=== PATIENT | female | born 1990 | race Caucasian/White ===

== ENCOUNTER 2019-05-08 05:49 | Inpatient (IN) | payer BC ==
[2019-05-08] MEDS ORDERED: Nalbuphine 10 MG/1 ML Vial IVPUSH PRN (12:42)
[2019-05-08] MEDS ORDERED: Lidocaine 1% 50 ML MDV INJECT ONE (12:42)
[2019-05-08] MEDS ORDERED: Ondansetron 4 MG/2 ML SDV IVPUSH PRN (12:42)
[2019-05-08] MEDS ORDERED: Oxytocin/Lactated Ringers 10 UNIT/1,000 ML BAG IV SCH ×2 (12:45)
[2019-05-08] MEDS: Lactated Ringers 1,000 ML IV SCH ×3 (14:33→21:29)
--- NOTE | 2019-05-08 14:51 | PCM.LDHP ---
L&D History of Present Illness - General Date of Service: 05/08/19 Admit Problem/Dx: Patient Status Order with Admit Dx/Problem 05/08/19 12:42 Patient Status [ADT] Routine Admission Diagnosis/Problem Admission Diagnosis/Problem Elective induction of labor planned 05/08/19 14:43 Jhonatan is a 28-year-old 1 para 0 white female was admitted on 05/08/2019 at 40-4/7 weeks gestational age with an CHAU of 05/04/2019 for elective induction of labor. Source of Information: Patient History Limitations: Reports: No Limitations - History of Present Illness Introduction:: Jhonatan is a 28-year-old 1 para 0 white female was admitted on 05/08/2019 at 40-4/7 weeks gestational age with an CHAU of 05/04/2019 for elective induction of labor. The patient's CHAU of 05/04/2019 was based upon an early ultrasound and . This was done with her care in [place]. She transferred care to our clinic with that transfer visit being 2018 at 31 weeks and 6 days. Since that time patient has had regular visits. Patient reports that her weight gain has been approximately 30 pounds from 135 up to approximately 164 pounds. Her vital signs have been stable throughout the care. Fundal height growth has been appropriate. She declined genetic testing. She desires to breast-feed. Her group B strep screen is negative. Patient had her T DAP prior to transfer of care. She is desiring a natural labor. Laboratory testing in showed first labs: Blood is O+ with negative and by screen. First hemoglobin was 13.8 g/dL with platelets 346,000. Urine culture was negative. Hepatitis B surface antigen was negative as was HIV. Chlamydia and gonorrhea assays were both negative. Second trimester hemoglobin was 12.1 g/dL. Platelets were 257,000. One-hour GTT was normal at 119. The strep screen was negative. Allergies none Medications: 1. vitamins 1 daily. Past medical history: Unremarkable Past surgical history: 1. Tarsal tunnel surgery 2004 Family history: Father at age 54 with history of diabetes. Maternal Grandfather has a history of breast cancer. Mother negative for BRCA gene mutation the patient has not had testing done. One brother and one sister alive and well. Maternal grandmother healthy. Paternal grandfather with heart attack. Paternal grandmother alive. Patient denies any family history of blood clots, reaction to medications or anesthesia. Twins or other abnormalities. Social history: Patient is area she lives in [place], [place]. 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 She has a postgraduate degree. She does not use any significant most alcohol, drugs or tobacco. Her 's name is Jose Hand. Review of systems: In general patient has no complaints. Baby has been active. Skin: Negative Lungs: No infectious symptoms or shortness of breath Cardiovascular: No chest pain or exercise intolerance Breasts: No lumps, changes in size other than those associated with . No pain, dimpling, discharge or axillary or supraclavicular concerns. GI: Negative : Changes associated Musculoskeletal: Negative Neurological: Negative In general the patient is well-developed, well-nourished, pleasant female of stated age in no acute distress. On last evaluation clinic blood pressure 120/72. Weight was 163.8. Weight at time of transfer care at 31-6/7 weeks was 158 pounds. heart rate is 130. Skin is warm dry without lesions. HEENT, neck and back within normal limits. Lungs are clear with good breath sounds in all lung dougherty. Cardiovascular exam shows regular and rhythm without murmurs. Breast exam is deferredpatient does plan to breast-feed. Abdomen is gravid with fundal height of 38+ centimeters. Baby in vertex presentation Genital exam: Cervix is 2 cm, 80% effaced, -3 station but head well applied to the cervix, mid position, very soft. Extremities and neurological exam are grossly within normal limits. 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: - Past Surgical History HEENT Surgical History: Reports: Other (See Below) Other HEENT Surgeries/Procedures: [place] teeth removal Musculoskeletal Surgical History: Reports: Other (See Below) Other Musculoskeletal Surgeries/Procedures:: Tarsal Tunnel surgery Social & Family History - Family History Family Medical History: Noncontributory - Tobacco Use Smoking Status *Q: Never Smoker - Caffeine Use Caffeine Use: Reports: None - Recreational Drug Use Recreational Drug Use: No H&P Review of Systems - Review of Systems: Review Of Systems: See Below L&D Exam - Exam Exam: See Below - Vital Signs Vital Signs: Last Vital Signs Temp 36.7 C 05/08/19 12:10 Pulse 63 05/08/19 13:00 Resp 13 05/08/19 12:10 BP 111/69 05/08/19 13:00 Pulse Ox 99 05/08/19 12:10 Weight: 75.614 kg - Patient Data Lab Results Last 24 hrs: Laboratory Results - last 24 hr 05/08/19 Range/Units 13:16 WBC 7.99 (3.98-10.04) K/mm3 RBC 3.91 L (3.98-5.22) M/mm3 Hgb 12.8 (11.2-15.7) gm/L Hct 37.1 (34.1-44.9) % MCV 94.9 H (79.4-94.8) fl MCH 32.7 H (25.6-32.2) pg MCHC 34.5 (32.2-35.5) g/dl RDW Std Deviation 40.9 (36.4-46.3) fL Plt Count 234 (182-369) K/mm3 MPV 10.3 (9.4-12.3) fl Neut % (Auto) 72.9 H (34.0-71.1) % Lymph % (Auto) 17.8 L (19.3-51.7) % [place] % (Auto) 7.6 (4.7-12.5) % Eos % (Auto) 1.1 (0.7-5.8) Baso % (Auto) 0.3 (0.1-1.2) % Neut # (Auto) 5.83 (1.56-6.13) K/mm3 Lymph # (Auto) 1.42 (1.18-3.74) K/mm3 [place] # (Auto) 0.61 H (0.24-0.36) K/mm3 Eos # (Auto) 0.09 (0.04-0.36) K/mm3 Baso # (Auto) 0.02 (0.01-0.08) K/mm3 Result Diagrams: 05/08/19 13:16 Problem List Initiated/Reviewed/Updated: Yes Orders Last 24hrs: Active Orders 24 hr Category Date Time Status Patient Status [ADT] Routine ADT 05/08/19 12:42 Active Activity as Tolerated [RC] PFP Care 05/08/19 12:42 Active Communication Order [RC] ASDIRECTED Care 05/08/19 12:42 Active Heart Tones [RC] ASDIRECTED Care 05/08/19 12:43 Active Non Stress Test [RC] PER UNIT ROUTINE Care 05/08/19 12:42 Active Notify Provider [RC] PFP Care 05/08/19 12:42 Active Notify Provider [RC] PRN Care 05/08/19 12:42 Active Peripheral IV Care [RC] . DIRECTED Care 05/08/19 12:43 Active Pump Management, Intrathecal [RC] ASDIRECTED Care 05/08/19 16:00 Active Vital Signs [RC] PER UNIT ROUTINE Care 05/08/19 12:42 Active Regular Diet [DIET] Diet 05/08/19 Lunch Active RAPID PLASMA REAGIN,RPR [CHEM] Routine Lab 05/08/19 13:16 Received RUBELLA ANTIBODY IGG [CHEM] Stat Lab 05/08/19 13:16 Received Lactated Ringers [Ringers, Lactated] 1,000 ml Med 05/08/19 12:45 Active IV ASDIRECTED Nalbuphine [Nubain] Med 05/08/19 12:42 Active 10 mg IVPUSH Q2H PRN Ondansetron [Zofran] Med 05/08/19 12:42 Active 4 mg IVPUSH Q4H PRN Oxytocin/Lactated Ringers [Pitocin in LR 10 Units/1,000 Med 05/08/19 12:45 Active ML] 10 unit in 1,000 ml IV .CONTINUOUS Oxytocin/Lactated Ringers [Pitocin in LR 10 Units/1,000 Med 05/08/19 12:45 Active ML] 10 unit in 1,000 ml IV TITRATE Electronic Heart Tones Ext w TOCO [WOMSER] Oth 05/08/19 12:42 Ordered Routine Electronic Heart Tones Internal [WOMSER] Per Unit Oth 05/08/19 12:42 Ordered Routine Peripheral IV Insertion Adult [OM.PC] Routine Oth 05/08/19 12:42 Ordered Resuscitation Status Routine Resus Stat 05/08/19 12:42 Ordered Medication Orders Lactated Ringer's (Ringers, Lactated) 1,000 mls @ 100 mls/hr IV ASDIRECTED EBONY Last Admin: 05/08/19 14:33 Dose: 100 mls/hr Oxytocin/Lactated Ringer's (Pitocin In Lr 10 Units/1,000 Ml) 10 unit in 1,000 mls @ 12 mls/hr IV TITRATE EBONY; Protocol Last Admin: 05/08/19 14:32 Dose: 2 munits/min, 12 mls/hr Oxytocin/Lactated Ringer's (Pitocin In Lr 10 Units/1,000 Ml) 10 unit in 1,000 mls @ 500 mls/hr IV .CONTINUOUS EBONY Nalbuphine HCl (Nubain) 10 mg IVPUSH Q2H PRN PRN Reason: Pain Ondansetron HCl (Zofran) 4 mg IVPUSH Q4H PRN PRN Reason: Nausea/Vomiting Assessment/Plan Comment:: 1. 40-4/7 week intrauterine , admitted for elective induction of labor 2. Group B strep screen negative 3. Patient plans to breast-feed 4. Patient desires natural labor but thinks she would be accepting of pain medication if necessary. 5. T DAP given during . Plan: 1. RPR and CBC upon admission 2. Elective induction of labor with artificial rupture membranes which has resulted in clear amniotic fluid. 3. Natural labor or as otherwise decided by the patient. 4. Support breast-feeding decision.
[2019-05-08] MEDS ORDERED: Sodium Chloride 0.9% 1,000 ML PRN (22:27)
[2019-05-08] MEDS ORDERED: Sodium Chloride 0.9% 1,000 ML ONE (22:30)
[2019-05-08] MEDS ORDERED: Sodium Chloride 0.9% 200 ML ONE (22:45)
[2019-05-08] MEDS ORDERED: Lidocaine 1% 50 ML MDV ONE (23:32)
--- NOTE | 2019-05-09 | PCM.SN ---
- Free Text/Narrative Note: Delivery note: Jhonatan is a 28-year-old 1 now para 1001 white female who is admitted for elective induction labor on 05/08/2019 at 40-4/7 weeks gestational age with an CHAU of 05/04/2019. She underwent elective induction of labor with artificial rupture membranes. She was augmented with Pitocin. She desired natural labor with no pain control whatsoever. She progressed slowly to approximately 5 cm. she started having variable decelerations and an intrauterine pressure transducer was placed. Amnioinfusion was then started. With that heart tones showed continued good variability. There were some decelerations noted. She progressed rapidly from 5-10 cm. Became completely dilated at approximately 2315 hrs. She pushed approximately 15 minutes and at 2330 hrs. on 05/08/2019 she delivered a viable, avendaño, female infant with Apgars of 8 and 9, a length of 22 inches,A weight of 7 pounds 11-1/2 ounces (3500 g) in a left occiput anterior position. Shoulders delivered without problems and baby was placed on mom's abdomen. Nose and mouth were bulb suctioned. Cord was allowed to pulsate for approximately 2 minutes and was clamped and cut. Pitocin was increased to 500 mL an hour after the delivery to increase uterine tone and decrease likelihood of bleeding. Umbilical cord blood was obtained. The umbilical cord had 3 vessels. Patient had a second-degree perineal laceration which was infiltrated with lidocaine 1% approximately 18 mL total. It was repaired with 3-0 Monocryl in a routine episiotomy fashion. Patient tolerated this well. The placenta delivered in a Fan presentation, appeared intact and complete and was discarded per patient desire. Estimated blood loss was 200 mL. Patient plans to breast-feed. Condition: Good.
[2019-05-09] MEDS ORDERED: Lanolin 100% Cream 7 GM Tube TOP PRN (00:42)
[2019-05-09] MEDS ORDERED: Docusate Sodium 100 MG Cap PO PRN (00:42)
[2019-05-09] MEDS ORDERED: Acetaminophen 325 MG Tab PO PRN (00:42)
[2019-05-09] MEDS ORDERED: Witch Hazel Medicated Pads 40/Jar TOP PRN (00:42)
[2019-05-09] MEDS ORDERED: Benzocaine/Menthol 20%-0.5% Spray 56 GM Canister TOP PRN (00:42)
[2019-05-09] MEDS: Ibuprofen 600 MG Tab PO PRN ×4 (01:53→20:45)
--- NOTE | 2019-05-09 07:31 | PCM.SN ---
- Free Text/Narrative Note: note: Patient is doing well in the period. Minimal lochia, voiding well, ambulated without problems. Nursing without concerns. Patient is afebrile, vital signs are stable Abdomen is flat, soft, uterus is below the umbilicus and is firm and nontender. Legs are nontender. Assessment: recovery going well. Plan: Routine care. Patient be discharged home within the next 24-48 hours.
[2019-05-09] MEDS: Prenatal Multivitamin with Calcium/Folic Acid/Iron Tab PO SCH (08:36)
--- NOTE | 2019-05-10 05:52 | PCM.DCSUM1 ---
Discharge Summary - Hospital Course Free Text/Narrative:: Jhonatan is a 28-year-old 1 now para 1001 white female who is admitted for elective induction labor on 05/08/2019 at 40-4/7 weeks gestational age with an CHAU of 05/04/2019. She underwent elective induction of labor with artificial rupture membranes. She was augmented with Pitocin. She desired natural labor with no pain control whatsoever. She progressed slowly to approximately 5 cm. she started having variable decelerations and an intrauterine pressure transducer was placed. Amnioinfusion was then started. With that heart tones showed continued good variability. There were some decelerations noted. She progressed rapidly from 5-10 cm. Became completely dilated at approximately 2315 hrs. She pushed approximately 15 minutes and at 2330 hrs. on 05/08/2019 she delivered a viable, avendaño, female infant with Apgars of 8 and 9, a length of 22 inches,A weight of 7 pounds 11-1/2 ounces (3500 g) in a left occiput anterior position. Shoulders delivered without problems and baby was placed on mom's abdomen. Nose and mouth were bulb suctioned. Cord was allowed to pulsate for approximately 2 minutes and was clamped and cut. Pitocin was increased to 500 mL an hour after the delivery to increase uterine tone and decrease likelihood of bleeding. Umbilical cord blood was obtained. The umbilical cord had 3 vessels. Patient had a second-degree perineal laceration which was infiltrated with lidocaine 1% approximately 18 mL total. It was repaired with 3-0 Monocryl in a routine episiotomy fashion. Patient tolerated this well. The placenta delivered in a Fan presentation, appeared intact and complete and was discarded per patient desire. Estimated blood loss was 200 mL. course has been uneventful. She is voiding without concern, nursing well and has minimal lochia. VS have been stable. She is desiring discharge home. Diagnosis: Stroke: No - Discharge Data Discharge Date: 05/10/19 Discharge Disposition: Home, Self-Care 01 Condition: Good - Referral to Home Health Primary Care Physician: Kevon Calzada MD - Patient Instructions Diet: Regular Diet as Tolerated (nursing diet with increased calcium and calories as directed) Activity: As Tolerated (no intercourse or tampons until bleeding resolves) Driving: May Drive Today Showering/Bathing: May Shower Notify Provider of: Fever, Increased Pain, Swelling and Redness, Nausea and/or Vomiting - Discharge Plan Home Medications: Home Meds PNV95/Ferrous Fumarate/FA [ Vitamins Tablet] 1 tab PO DAILY 05/08/19 [ History] Acetaminophen [Tylenol] 650 mg PO Q4H PRN tablet 05/10/19 [Rx] Ibuprofen [Motrin] 600 mg PO Q4H PRN tablet 05/10/19 [Rx] - Discharge Summary/Plan Comment DC Time >30 min.: No Discharge Summary/Plan Comment: 1. Discharge home. 2. Nursing diet 3. Routine activity as directed 4. RTC-Dr. Calzada-2 weeks. - Patient Data Vitals - Most Recent: Last Vital Signs Temp 36.4 C 05/10/19 03:36 Pulse 60 05/10/19 03:36 Resp 14 05/10/19 03:36 BP 112/69 05/10/19 03:36 Pulse Ox 100 05/10/19 03:36 Weight - Most Recent: 75.614 kg I&O - Last 24 hours: Intake & Output 05/09/19 05/09/19 05/10/19 14:59 22:59 06:59 Intake Total 180 Balance 180 Lab Results - Last 24 hrs: Laboratory Results - last 24 hr 05/08/19 Range/Units 13:16 Rubella IgG Antibody Reactive (pos) (REACTIVE) Med Orders - Current: Current Medications Acetaminophen (Tylenol) 650 mg PO Q4H PRN PRN Reason: mild pain or fever Benzocaine/Menthol (Dermoplast Pain Relief Watts) 0 gm TOP ASDIRECTED PRN PRN Reason: Perineal Comfort Measure Last Admin: 05/09/19 01:53 Dose: 1 can Docusate Sodium (Colace) 100 mg PO BID PRN PRN Reason: Constipation Last Admin: 05/09/19 20:45 Dose: 100 mg Emollient Ointment (Lansinoh Hpa) 0 gm TOP ASDIRECTED PRN PRN Reason: Sore Nipples Ibuprofen (Motrin) 600 mg PO Q4H PRN PRN Reason: Mild pain or fever Last Admin: 05/09/19 20:45 Dose: 600 mg Prenat Multivit/Staff Midwife/Iron/Folic Ac ( Plus Iron) 1 each PO DAILY EBONY Last Admin: 05/09/19 08:36 Dose: 1 each Kiel López (Tucks) 1 pad TOP ASDIRECTED PRN PRN Reason: Pain Last Admin: 05/09/19 01:52 Dose: 1 container Discontinued Medications Lactated Ringer's (Ringers, Lactated) 1,000 mls @ 100 mls/hr IV ASDIRECTED EBONY Last Admin: 05/08/19 21:29 Dose: 100 mls/hr Oxytocin/Lactated Ringer's (Pitocin In Lr 10 Units/1,000 Ml) 10 unit in 1,000 mls @ 12 mls/hr IV TITRATE EBONY; Protocol Last Titration: 05/08/19 23:30 Dose: 999 mls/hr Oxytocin/Lactated Ringer's (Pitocin In Lr 10 Units/1,000 Ml) 10 unit in 1,000 mls @ 500 mls/hr IV .CONTINUOUS EBONY Last Admin: 05/09/19 00:23 Dose: 999 mls/hr Sodium Chloride (Normal Saline) 1,000 mls @ 100 mls/hr .XX ASDIRECTED PRN PRN Reason: amnioinfusion Sodium Chloride (Normal Saline) 200 mls @ 999 mls/hr .XX ONETIME ONE Stop: 05/08/19 22:57 Last Admin: 05/08/19 22:30 Dose: 200 mls/hr Lidocaine HCl (Xylocaine 1%) 50 ml INJECT ONETIME ONE Stop: 05/08/19 12:43 Last Admin: 05/08/19 23:56 Dose: 50 ml Lidocaine HCl (Xylocaine 1%) Confirm Administered Dose 50 ml .ROUTE .STK-MED ONE Stop: 05/08/19 23:33 Last Admin: 05/09/19 05:34 Dose: Not Given Nalbuphine HCl (Nubain) 10 mg IVPUSH Q2H PRN PRN Reason: Pain Ondansetron HCl (Zofran) 4 mg IVPUSH Q4H PRN PRN Reason: Nausea/Vomiting
[2019-05-10] MEDS: Ibuprofen 600 MG Tab PO PRN (07:21)
[2019-05-10] MEDS: Prenatal Multivitamin with Calcium/Folic Acid/Iron Tab PO SCH (11:04)
== END 2019-05-10 11:57 | disposition home or self-care (01) | DRG 560 ==
LOC: JD.OB 12:00 → OBSVTOIN 23:30
PROVIDERS: ADMIT Obstetrics & Gynecology; ATTEND Obstetrics & Gynecology
PROC: 10E0XZZ Delivery of Products of Conception, External Approach (ICD-10-PCS; principal; 2019-05-08)
PROC: 10907ZC Drainage of Amniotic Fluid, Therapeutic from Products of Conception, Via Natural or Artificial Opening (ICD-10-PCS; 2019-05-08)
PROC: 10H07YZ Insertion of Other Device into Products of Conception, Via Natural or Artificial Opening (ICD-10-PCS; 2019-05-08)
PROC: 0KQM0ZZ Repair Perineum Muscle, Open Approach (ICD-10-PCS; 2019-05-08)
DX: O48.0 Post-term pregnancy (principal); O76 Abnormality in fetal heart rate and rhythm complicating labor and delivery; O70.1 Second degree perineal laceration during delivery; Z3A.40 40 weeks gestation of pregnancy; Z37.0 Single live birth
CPT/HCPCS: 36415; 59025; 59409; 85025; 86592; 86762; A9270-GY; J2001; J2590; J7040; J7120